=== PATIENT | female | born 1990 | race African-American/Black ===

== ENCOUNTER 2016-08-24 08:52 | Emergency (ER) | payer OTHER ==
[~2016-08-24 08:52] MED LIST: IBUPROFEN800 M1 PO; IRON325 M3 PO; MEDROL4 M2 PO; NO HOME MEDICATION XX; ZOLOFT50 M1 PO
[2016-08-24 11:28] LABS: URINE BILIRUBIN NEGATIVE (NEG); URINE BLOOD NEGATIVE (NEG); URINE GLUCOSE (UA) NEGATIVE (NEG); URINE KETONE NEGATIVE (NEG); URINE LEUKOCYTE ESTERASE POSITIVE (NEG); URINE NITRITE POSITIVE (NEG); URINE PROTEIN NEGATIVE (NEG); URINE SPECIFIC GRAVITY 1.015 (1.003-1.030)
[2016-08-24 11:29] LABS: URINE APPEARANCE HAZY; URINE COLOR YELLOW
[2016-08-24 11:39] LABS: URINE BACTERIA 3+; URINE EPITHELIAL CELLS 0-3 /[HPF] (0-10); URINE RBC 0-1 /[HPF] (0-5)
[2016-08-24] MEDS ORDERED: MACROBID 100 M100 M1 PO (12:23)
[2016-08-24] MEDS ORDERED: NORCO 5/3251 TAB PO (12:23)
== END 2016-08-24 12:40 ==
LOC: EDMED 08:52
PROVIDERS: Emergency Medicine
DX: N39.0 Urinary tract infection, site not specified (principal); N83.201 Unspecified ovarian cyst, right side; Z98.890 Other specified postprocedural states
CPT/HCPCS: J1170; J1885

== ENCOUNTER 2016-08-29 12:02 | Emergency (ER) | payer OTHER ==
[~2016-08-29 12:02] MED LIST changes: +MACROBID 100 M100 M1 PO; +NORCO 5/3251 TAB PO
[2016-08-29] MEDS ORDERED: MACROBID 100 M100 M1 PO (12:19)
[2016-08-29] MEDS ORDERED: HYDROCODON-ACE1 EA16 PO (12:19)
[2016-08-29 13:10] LABS: BASO % 0.6 % (0-2); EOS % 2.5 % (0-7); EOSINOPHIL ABSOLUTE COUNT 0.1 tho/cmm (0.0-0.7); HCT-HEMATOCRIT 36.1 % (34.0-49.0); HGB-HEMOGLOBIN 11.6 gm/dl (12.0-15.5); LYMPH % 36.9 % (20-45); LYMPH ABSOLUTE COUNT 1.9 tho/cmm (0.8-4.5); MCH (MEAN CORPUSCULAR HGB) 25.2 pg (28.0-32.0); MCHC MEAN CORPUSCULAR HGB CONC 32.1 % (32.0-36.0); MCV (MEAN CELL VOLUME) 78.3 fl (82.0-96.0); MEAN PLATELET VOLUME 11.1 cmc (9.4-12.4); MONO % 5.9 % (0-12); MONOCYTE ABSOLUTE COUNT 0.3 tho/cmm (0.0-1.2); NEUTROPHIL ABSOLUTE COUNT 2.8 tho/cmm (1.6-8.0); NEUTROPHIL-AUTOMATED 2.8 tho/cmm (1.6-8.0); NEUTROPHILS % 54.1 % (40-80); PLATELET COUNT 270 tho/cmm (150-450); RED BLOOD COUNT 4.61 mil/cmm (4.00-5.20); RED CELL DISTRIBUTION WIDTH 14.5 % (12.4-16.4); WHITE BLOOD COUNT 5.1 tho/cmm (4.0-10.0)
[2016-08-29 13:20] LABS: PREGNANCY-SERUM NEGATIVE (NEGATIVE)
[2016-08-29 13:24] LABS: ALB/GLOB RATIO 0.7 (0.8-2.0); ALBUMIN 3.4 g/dl (3.5-5.0); ALKALINE PHOSPHATASE 72 U/L (33-138); ALT/SGPT 20 U/L (12-78); ANION GAP 13 mmol/L (0-20); AST/SGOT 12 U/L (10-40); BILIRUBIN,TOTAL 0.3 mg/dl (0-1.5); BLOOD UREA NITROGEN 10 mg/dl (6-24); CALCIUM 8.8 mg/dl (8.5-10.5); CARBON DIOXIDE-VENOUS 26 mmol/L (22-32); CHLORIDE 106 mmol/l (96-110); CREATININE 0.91 mg/dl (0.50-1.10); GLUCOSE 99 mg/dL (70-110); LIPASE 124 U/L (73-393); POTASSIUM 3.7 mmol/L (3.7-5.1); SODIUM 141 mmol/L (135-145); eGFR VALUE FOR BLACK >90 mL/Min
[2016-08-29 14:06] LABS: URINE BILIRUBIN NEGATIVE (NEG); URINE BLOOD NEGATIVE (NEG); URINE GLUCOSE (UA) NEGATIVE (NEG); URINE KETONE NEGATIVE (NEG); URINE LEUKOCYTE ESTERASE POSITIVE (NEG); URINE NITRITE NEGATIVE (NEG); URINE PROTEIN NEGATIVE (NEG)
[2016-08-29 14:11] LABS: URINE APPEARANCE CLEAR; URINE COLOR YELLOW
[2016-08-29 14:23] LABS: URINE RBC 0-1 /[HPF] (0-5); URINE WBC 0-1 /[HPF] (0-5)
== END 2016-08-29 14:54 ==
LOC: EDMED 12:02
PROVIDERS: Emergency Medicine
DX: N83.201 Unspecified ovarian cyst, right side (principal); Z98.890 Other specified postprocedural states
CPT/HCPCS: J1170; J2405; J7030; P9612